=== PATIENT | male | born 1980 | race Two or more races ===

== ENCOUNTER 2022-07-21 17:35 | Emergency (ER) | payer SELFPAY ==
[~2022-07-21] VITALS: Ht 167.6 cm; Wt 73.4 kg
[2022-07-21] MEDS ORDERED: NEOMSUS11 OP (19:26)
[2022-07-21 22:44] VITALS: BP 131/54
[2022-07-22] MEDS ORDERED: NEOMSUS11 OP (17:03)
== END 2022-07-21 21:12 | disposition home or self-care (01) ==
LOC: ER 17:35
DX: T26.92XA Corrosion of left eye and adnexa, part unspecified, initial encounter (principal); Y93.89 Activity, other specified; Y92.89 Other specified places as the place of occurrence of the external cause; Y99.8 Other external cause status